=== PATIENT | female | born 1955 | race Caucasian/White ===

== ENCOUNTER 2019-08-27 12:39 | Outpatient (CLI) | payer MEDICARE, BC ==
--- NOTE | 2019-08-27 15:11 | MRI ---
LEFT HIP MRI WITHOUT IF CONTRAST: HISTORY: Left hip pain. COMPARISON: 01/30/2013. FINDINGS: Multiplanar, multisequence MRI examination of the left hip is performed. There is no evidence for ab normal marrow signal that would suggest avascular necrosis, fracture, or acute stress injury. There is some blunting and indistinction of the anterior and superior labrum, evidence for prior labrum rep air. There is a small area of labral irregularity involving the lateral labrum which could represent a recurrent tear. Gluteus minimus and medius tendon insertion regions appear unremarkable. No sign ificant abnormal joint effusion. Somewhat heterogeneous red marrow reconversion. IMPRESSION: 1. Blunted anterior and superior labrum, evidence for prior labral repair. Small focus of labral ir regularity involving the lateral labrum. This could potentially represent a recurrent tear. 2. No evidence for abnormal marrow signal to suggest fracture or acute stress injury or avascular ne crosis. 3. If a recurrent labral tear is a clinical concern, a followup left hip MRI following left hip arth rogram might give additional information in that regard. POS: [facility]
== END 2019-08-27 12:40 | disposition home or self-care (01) ==
LOC: BICMRI 12:39
PROVIDERS: ATTEND Family Medicine
DX: M25.552 Pain in left hip (principal); Z98.890 Other specified postprocedural states